=== PATIENT | female | born 1995 | race Two or more races ===

== ENCOUNTER → 2024-03-30 | Outpatient (CLI) | payer MEDICAID, SELFPAY ==
--- NOTE | 2024-03-30 08:45 | XR_ITS ---
Examination: Breast ultrasound complete, bilateral Date and time of exam: September 27, 2024 0913 hours INDICATIONS: Bloody discharge with pain beginning 3 months ago Technique: Real-time grayscale ultrasonographic imaging bilateral breasts, including all 4 quadrants as well as nipple retroareolar and axillary regions. Findings: Sonographic images right breast No cystic or solid mass Sonographic images left breast Retroareolar nodule 5 x 3 x 5 mm circumscribed IMPRESSION: BI-RADS Category 0: Incomplete: Need additional imaging evaluation Given the patient's presentation recommend diagnostic mammography follow-up
== END | disposition home or self-care (01) ==
LOC: CDIM 08:41
PROVIDERS: Referring Provider Internal Medicine; Visit Provider Internal Medicine
DX: R92.8 Other abnormal and inconclusive findings on diagnostic imaging of breast (principal)
CPT/HCPCS: 76641

== ENCOUNTER → 2024-04-15 | Outpatient (CLI) | payer MEDICAID, SELFPAY ==
--- NOTE | 2024-04-15 11:30 | XR_ITS ---
Examination: Diagnostic digital mammography, bilateral Computer aided detection 3-D breast Tomosynthesis, bilateral Date and time of exam: April 15, 1999 2516 hours Indications: Bloody discharge intermittent 3 months Technique: Nonmagnified MLO, CC views of the breasts to been obtained, reconstructed from 3-D Tomosynthesis images. R2 computer aided detection program utilized for evaluation of suspicious masses and/or abnormal calcifications. 3-D Tomosynthesis images obtained. Findings: The breasts are heterogeneously dense, which may obscure small masses No definite suspicious masses Please see the left breast sonogram report March 30, 2024 indicating 5 mm left renal nodule Impression: BI-RADS Category 0: Incomplete: Need additional imaging evaluation If the patient has true bloody discharge, recommend ductogram follow-up of the affected breast. Recommend 6 month follow-up bilateral breast sonography to document stability of retroareolar nodule left breast described on ultrasound March 30, 2024
== END | disposition home or self-care (01) ==
LOC: CDIM 11:02
PROVIDERS: PCP Internal Medicine; Referring Provider Internal Medicine; Visit Provider Internal Medicine
DX: R92.8 Other abnormal and inconclusive findings on diagnostic imaging of breast (principal); N64.52 Nipple discharge
CPT/HCPCS: 77062; 77066; G0279

== ENCOUNTER → 2024-08-03 | Outpatient (CLI) | payer MEDICAID, SELFPAY ==
--- NOTE | 2024-08-03 09:00 | XR_ITS ---
Examination: Left breast ductogram Left breast CC view x2 Exam date and time: August 03, 2024 0912 hours INDICATIONS: Left breast discharge 6 months TECHNIQUE AND FINDINGS: The breast is heterogeneously dense, which may obscure small masses Successful cannulation of left breast BX x2, however no diagnostic filling of the ductal system IMPRESSION: No diagnostic filling of the ductal system Recommend 6 month left breast sonogram follow-up
== END | disposition home or self-care (01) ==
LOC: CDIM 08:36
PROVIDERS: Referring Provider Internal Medicine; Visit Provider Internal Medicine
DX: N64.52 Nipple discharge (principal)
CPT/HCPCS: 77053; Q9967

== ENCOUNTER → 2025-02-04 | Outpatient (CLI) | payer MEDICAID, SELFPAY ==
--- NOTE | 2025-02-04 15:17 | XR_ITS ---
EXAMINATION: Sinus series 4 views TECHNIQUE: Desean Herbert lateral submentovertex sinus series 4 views Date and time: February 04, 2025, 1431 hours INDICATIONS: Ringing sensation in the right ear beginning 3 weeks ago. FINDINGS: Symmetrical mastoid aeration No definite acute mastoiditis No significant sinus opacification No fluid levels IMPRESSION: No significant sinusitis If right ear symptoms persist, consider CT scan middle or inner ear follow-up
== END | disposition home or self-care (01) ==
LOC: CDIM 15:10
PROVIDERS: PCP Physician Assistant; Referring Provider Physician Assistant; Visit Provider Physician Assistant
DX: H69.91 Unspecified Eustachian tube disorder, right ear (principal)
CPT/HCPCS: 70220